=== PATIENT | male | born 1990 | race Caucasian/White ===

== ENCOUNTER 2016-07-07 06:03 | Emergency (ER) | payer MEDICAID ==
[~2016-07-07] VITALS: Ht 175.3 cm; Wt 68.0 kg
[2016-07-07 06:07] VITALS: BP 128/69
--- NOTE | 2016-07-07 06:15 | NUR ---
PT TAKEN TO BED 4
--- NOTE | 2016-07-07 06:15 | NUR ---
PT CAME TO ER WITH C/O LEFT SHOULDER PAIN D/T S/P FALL IN THE BATHTHUB 1 WEEK AGO
--- NOTE | 2016-07-07 06:20 | NUR ---
X-RAY AT BEDSIDE
--- NOTE | 2016-07-07 06:27 | NUR ---
Dr. Parr evaluating patient at bedside.
--- NOTE | 2016-07-07 07:05 | NUR ---
Patient discharged with v/s stable. Written and verbal after care instructions given and explained. Patient alert, oriented and verbalized understanding of instructions. Ambulatory with steady gait. All questions addressed prior to discharge. ID band removed. Patient advised to follow up with PMD. Rx of MOTRIN 800MG PO given. Patient educated on indication of medication including possible reaction and side effects. Opportunity to ask questions provided and answered.
[2016-07-07 07:06] VITALS: BP 123/72
== END 2016-07-07 07:09 | disposition home or self-care (01) ==
LOC: MED 06:03
DX: M25.512 Pain in left shoulder (principal)

== ENCOUNTER 2016-09-21 04:21 | Emergency (ER) | payer MEDICAID ==
[~2016-09-21] VITALS: Ht 175.3 cm; Wt 72.6 kg
[2016-09-21 04:24] VITALS: BP 136/82
[2016-09-21] MEDS ORDERED: NACL 0.9% 1,000 ML IV ONE (04:45)
[2016-09-21 05:17] LABS: AMPHETAMINE, URINE POS. ng/ml (NEG <=1000); BARBITURATE, URINE NEG. ng/ml (NEG <=200); BENZODIAZEPINE, URINE NEG. ng/mL (NEG <=200); CANNABINOID, URINE POS. ng/mL (NEG <=50); COCAINE, URINE NEG. ng/mL (NEG <=300); OPIATE, URINE NEG. ng/mL (NEG <=2000); PHENCYCLIDINE SCREEN,URINE NEG. ng/mL (NEG <=25)
[2016-09-21 05:37] VITALS: BP 142/88
[2016-09-21 08:59] LABS: AMPHETAMINE, URINE POS. ng/ml (NEG <=1000); BARBITURATE, URINE NEG. ng/ml (NEG <=200); BENZODIAZEPINE, URINE NEG. ng/mL (NEG <=200); CANNABINOID, URINE POS. ng/mL (NEG <=50); COCAINE, URINE NEG. ng/mL (NEG <=300); OPIATE, URINE NEG. ng/mL (NEG <=2000); PHENCYCLIDINE SCREEN,URINE NEG. ng/mL (NEG <=25)
== END 2016-09-21 05:37 | disposition home or self-care (01) ==
LOC: MED 04:21
DX: F19.10 Other psychoactive substance abuse, uncomplicated (principal); F12.10 Cannabis abuse, uncomplicated; R06.02 Shortness of breath; R03.0 Elevated blood-pressure reading, without diagnosis of hypertension
CPT/HCPCS: 80305; 93005; 96360; 99285; J7030

== ENCOUNTER 2019-08-13 22:40 | Emergency (ER) | payer SELFPAY ==
[~2019-08-13] VITALS: Ht 175.3 cm; Wt 76.2 kg
[2019-08-13 23:29] VITALS: BP 154/86
--- NOTE | 2019-08-13 23:32 | NUR ---
PT TRIAGED AND SENT TO LOBBY.
[2019-08-14] MEDS ORDERED: LORazepam 2 MG/ML VIAL IM ONE (02:05)
--- NOTE | 2019-08-14 02:22 | NUR ---
PT MEDICATED WITH [facility]. TOLERATED WELL. MIGDALIA
--- NOTE | 2019-08-14 02:25 | NUR ---
Patient discharged with v/s stable. Written and verbal after care instructions given and explained. Patient verbalized understanding. Ambulatory with steady gait. All questions addressed prior to discharge. Advised to follow up with PMD.
== END 2019-08-14 02:22 | disposition home or self-care (01) ==
LOC: MED 22:40
DX: F32.9 Major depressive disorder, single episode, unspecified (principal); F17.210 Nicotine dependence, cigarettes, uncomplicated; F12.10 Cannabis abuse, uncomplicated
CPT/HCPCS: 96372; 99283; J2060